=== PATIENT | female | born 1995 | race Caucasian/White ===

== ENCOUNTER 2019-06-10 13:28 | Emergency (ER) | payer OTHER ==
[~2019-06-10] VITALS: Ht 162.6 cm; Wt 73.0 kg
[2019-06-10 13:32] VITALS: Ht 162.6 cm; Wt 73.0 kg
[2019-06-10 14:00] VITALS: BP 145/98
== END 2019-06-10 14:00 | disposition home or self-care (01) ==
LOC: ED 13:28
DX: H60.91 Unspecified otitis externa, right ear (principal); R09.89 Other specified symptoms and signs involving the circulatory and respiratory systems

== ENCOUNTER 2019-07-16 11:03 | Emergency (ER) | payer OTHER ==
[~2019-07-16] VITALS: Ht 167.6 cm; Wt 71.2 kg
[2019-07-16 11:09] VITALS: BP 146/90; Ht 167.6 cm; Wt 71.2 kg
== END 2019-07-16 12:10 | disposition home or self-care (01) ==
LOC: ED 11:03
DX: R21 Rash and other nonspecific skin eruption (principal); L29.9 Pruritus, unspecified

== ENCOUNTER 2020-03-17 16:07 | Emergency (ER) | payer OTHER ==
[~2020-03-17] VITALS: Ht 167.6 cm; Wt 58.5 kg
[2020-03-17 16:44] VITALS: BP 114/77; Ht 167.6 cm; Wt 58.5 kg
== END 2020-03-17 17:16 | disposition home or self-care (01) ==
LOC: ED 16:07
DX: Z32.02 Encounter for pregnancy test, result negative (principal); F17.210 Nicotine dependence, cigarettes, uncomplicated

== ENCOUNTER 2020-04-29 20:47 | Emergency (ER) | payer OTHER ==
[~2020-04-29] VITALS: Ht 167.6 cm; Wt 63.5 kg
[2020-04-29 20:49] VITALS: BP 118/70; Ht 167.6 cm; Wt 63.5 kg
== END 2020-04-29 21:05 | disposition other institution (70) ==
LOC: ED 20:47
DX: Z02.89 Encounter for other administrative examinations (principal)

== ENCOUNTER 2020-07-15 16:17 | Emergency (ER) | payer OTHER ==
[~2020-07-15] VITALS: Ht 167.6 cm; Wt 62.1 kg
[2020-07-15 19:37] VITALS: BP 127/77
[2020-07-15 19:46] LABS: UA SPECIFIC GRAVITY 1.015 (1.005-1.035); microscopic required? YES; urine erythrocyte 3+ (NEGATIVE)
== END 2020-07-15 19:37 | disposition home or self-care (01) ==
LOC: ED 16:17
PROVIDERS: Specialist
DX: N75.0 Cyst of Bartholin's gland (principal); N39.0 Urinary tract infection, site not specified
CPT/HCPCS: 87491; 87591; J0696; J2001